=== PATIENT | male | born 1975 | race Caucasian/White ===

== ENCOUNTER 2022-03-08 00:04 | Emergency (ER) | payer OTHER | END 2022-03-08 02:00 | disposition EXP | LOC: MW.ED 00:04 | DX: R06.81 Apnea, not elsewhere classified (principal); S01.01XA Laceration without foreign body of scalp, initial encounter; V49.40XA Driver injured in collision with unspecified motor vehicles in traffic accident, initial encounter; Y92.410 Unspecified street and highway as the place of occurrence of the external cause | CPT/HCPCS: 92950; 99285; 99285-25 ==